=== PATIENT | male | born 1995 | race Caucasian/White ===

== ENCOUNTER 2018-01-20 16:53 | Emergency (ER) | payer MEDICAID ==
[~2018-01-20] VITALS: Ht 165.1 cm; Wt 56.2 kg
[2018-01-20 17:25] VITALS: BP 118/71
== END 2018-01-20 17:26 | disposition home or self-care (01) ==
LOC: M.ERS 16:53
DX: K64.4 Residual hemorrhoidal skin tags (principal); F17.210 Nicotine dependence, cigarettes, uncomplicated

== ENCOUNTER 2018-01-26 21:58 | Emergency (ER) | payer MEDICAID ==
[~2018-01-26] VITALS: Ht 165.1 cm; Wt 56.7 kg
[2018-01-26 22:45] LABS: URINE BILIRUBIN NEGATIVE (Negative); URINE BLOOD NEGATIVE (Negative); URINE CLARITY CLEAR; URINE COLOR YELLOW; URINE GLUCOSE-RANDOM NEGATIVE (Negative); URINE KETONES NEGATIVE (Negative); URINE LEUKOCYTES NEGATIVE (Negative); URINE NITRITE NEGATIVE (Negative); URINE PROTEIN NEGATIVE (Negative); URINE SPECIFIC GRAVITY 1.015 (1.005-1.030); URINE UROBILINOGEN 0.2 E.U./dl (0.2-1.0)
[2018-01-26 23:33] VITALS: BP 96/66
== END 2018-01-26 23:35 | disposition home or self-care (01) ==
LOC: M.ERS 21:58
PROVIDERS: Nurse Practitioner Family
DX: R35.0 Frequency of micturition (principal); K64.9 Unspecified hemorrhoids